=== PATIENT | male | born 1945 | race Caucasian/White ===

== ENCOUNTER → 2016-09-20 | Outpatient (CLI) | payer OTHER ==
--- NOTE | 2016-09-20 14:04 | CT ---
HISTORY: Right rib fracture Study: CT chest without contrast Comparison: None Technique: Axial non contrast images with coronal and sagittal reformats. Dose reduction procedures were used with MA/kv adjusted for body size. Findings: Examination of the mediastinum demonstrated no evidence for mediastinal masses, enlarged lymphadenop athy, or enlarged hilar adenopathy. Calcified mediastinal and right hilar adenopathy is indicative o f old granulomatous disease. There is a fat containing hiatal hernia present. No pleural effusions a re identified. No chest wall or axillary abnormality is identified. No rib fractures are identified. Those portions of the upper abdominal organs visualized were within normal limits with the exceptio n of pericholecystic fat stranding suggestive of inflammation. There is a question of some tiny ston es within the gallbladder. Evaluation with gallbladder sonography is recommended in order to evaluat e for cholelithiasis and developing cholecystitis. Examination of the lung ayala demonstrated no si gnificant nodules, alveolar infiltrates, masses, peribronchial thickening, or bronchiectasis. IMPRESSION: No right rib fractures identified. Pericholecystic inflammatory change with a question of some tiny gallstones present. Expedient gallb ladder sonography is recommended in order to evaluate for cholelithiasis with developing cholecystit is. Reported By:
== END | disposition home or self-care (01) ==
LOC: RAD 12:07
PROVIDERS: ATTEND Internal Medicine
DX: M54.6 Pain in thoracic spine (principal); R06.02 Shortness of breath; R07.81 Pleurodynia
CPT/HCPCS: 71250